=== PATIENT | male | born 1995 | race Two or more races ===

== ENCOUNTER 2017-01-14 18:46 | Emergency (ER) | payer MEDICAID, OTHER ==
[~2017-01-14] VITALS: Ht 162.6 cm; Wt 70.3 kg
[2017-01-14 19:28] VITALS: BP 129/93
== END 2017-01-14 23:55 | disposition left against medical advice (07) ==
LOC: ER 18:58
DX: H92.02 Otalgia, left ear (principal); Z53.21 Procedure and treatment not carried out due to patient leaving prior to being seen by health care provider